=== PATIENT | male | born 1955 | race Caucasian/White ===

== ENCOUNTER → 2017-11-29 | Outpatient (CLI) | payer OTHER ==
[~2017-11-29] MED LIST: ASPIRIN325 PO; CARISOPRODOL 3350 MG PO; COLACE100 MG PO; ELIQUIS2.5 MG PO; FLEXERIL PO; HYDROCODONE-AP1 EAC6 PO; METAMUCIL PAC1 UDPKT PO; NOHOMEMEDICATIONS; OXYCODONE HCL 55 MG PO; PERCOCET PO; TRAMADOL 50 MG50 MG PO; TYLENOL325 MG PO; VICOPROFEN 2001 EACH PO; XARELTO10 MG PO
== END ==
LOC: M.MRI 06:46
DX: M51.24 Other intervertebral disc displacement, thoracic region (principal); M40.294 Other kyphosis, thoracic region; M47.894 Other spondylosis, thoracic region; M51.34 Other intervertebral disc degeneration, thoracic region

== ENCOUNTER 2017-12-26 23:01 | Emergency (ER) | payer OTHER ==
[~2017-12-26] VITALS: Ht 175.3 cm; Wt 76.2 kg
[~2017-12-26 23:01] MED LIST changes: -CARISOPRODOL 3350 MG PO; -ELIQUIS2.5 MG PO; -FLEXERIL PO
[2017-12-26] MEDS ORDERED: CARISOPRODOL 3350 MG PO (23:14)
[2017-12-26] MEDS ORDERED: FLEXERIL PO (23:24)
[2017-12-26] MEDS ORDERED: TRAMADOL 50 MG50 MG PO (23:24)
[2017-12-26 23:34] VITALS: BP 150/88
== END 2017-12-26 23:35 | disposition home or self-care (01) ==
LOC: M.ERS 23:01
DX: S29.019A Strain of muscle and tendon of unspecified wall of thorax, initial encounter (principal); M54.9 Dorsalgia, unspecified; Z96.653 Presence of artificial knee joint, bilateral; Z88.8 Allergy status to other drugs, medicaments and biological substances; Z88.1 Allergy status to other antibiotic agents; X58.XXXA Exposure to other specified factors, initial encounter; Y93.89 Activity, other specified; Y92.89 Other specified places as the place of occurrence of the external cause; Y99.8 Other external cause status

== ENCOUNTER → 2018-01-15 | Outpatient (CLI) | payer OTHER ==
[~2018-01-15] MED LIST changes: +CARISOPRODOL 3350 MG PO; +ELIQUIS2.5 MG PO; +FLEXERIL PO
== END ==
LOC: M.RAD 11:28
DX: M54.6 Pain in thoracic spine (principal); G89.29 Other chronic pain; R07.81 Pleurodynia; M25.78 Osteophyte, vertebrae; M41.86 Other forms of scoliosis, lumbar region

== ENCOUNTER → 2018-02-02 | Outpatient (CLI) | payer OTHER | LOC: M.NUC 01-30 08:51 | DX: M25.561 Pain in right knee (principal); M79.89 Other specified soft tissue disorders ==

== ENCOUNTER 2018-03-16 11:56 | Inpatient (IN) | payer OTHER, MEDICAID ==
[2018-03-06 13:43] LABS: ABSOLUTE EOSINOPHILS 0.1 thou/uL (0.0-0.7); ABSOLUTE LYMPHOCYTES 1.4 thou/uL (0.8-5.3); ABSOLUTE MONOCYTES 0.5 thou/uL (0.0-1.2); ABSOLUTE NEUTROPHILS 4.6 thou/uL (1.6-8.1); BASOPHILS 0.5 %; EOSINOPHILS 1.6 %; HEMATOCRIT 44.2 % (42.0-52.0); LYMPHOCYTES 21.7 %; MCH 30.7 pg (26.0-34.0); MCV 90.3 fL (80.0-100.0); MPV 7.1 fl. (7.2-11.1); NUCLEATED RBCS 0 /100WBC; PLATELET COUNT* 238 thou/uL (150-400); POLYS 69.2 %; RDW-CV 13.5 % (10.5-14.5); WBC 6.6 thou/uL (4.0-11.0)
[2018-03-06 13:51] LABS: APTT 26.5 Seconds (25.0-31.3); PROTIME 9.7 Seconds (9.20-11.50)
[2018-03-06 14:02] LABS: ALBUMIN 3.9 g/dL (3.4-5.0); CALCIUM 9.3 mg/dL (8.5-10.1); CREATININE 0.9 mg/dL (0.6-1.3); TOTAL BILIRUBIN 0.4 mg/dL (<0.1-1.0); TOTAL PROTEIN 6.7 g/dL (6.4-8.2)
[2018-03-06 14:48] LABS: ESR (SEDRATE) 1 mm/hr (0-20)
--- NOTE | 2018-03-06 16:30 | EKG ---
[place] [address] ELECTROCARDIOGRAM REPORT Name: BORIS FANG Verena Room: PRE IN 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
[~2018-03-16] VITALS: Ht 177.8 cm; Wt 73.5 kg
[~2018-03-16 11:56] MED LIST changes: -ELIQUIS2.5 MG PO
[2018-03-19 11:00] VITALS: BP 135/90
[2018-03-19 16:40] VITALS: BP 118/66
[2018-03-19 20:00] VITALS: BP 102/66
[2018-03-20 00:15] VITALS: BP 115/63
[2018-03-20 04:02] VITALS: BP 103/74
[2018-03-20 04:17] LABS: HEMATOCRIT 37.1 % (42.0-52.0); HEMOGLOBIN 12.6 gm/dL (14.0-18.0)
[2018-03-20 08:00] VITALS: BP 89/65
[2018-03-20 16:15] VITALS: BP 139/77
[2018-03-20 17:28] VITALS: BP 139/77
[2018-03-20 20:00] VITALS: BP 131/80
[2018-03-21 00:54] VITALS: BP 121/78
[2018-03-21 00:58] VITALS: BP 121/78
[2018-03-21 04:38] VITALS: BP 122/76
[2018-03-21 04:46] LABS: HEMATOCRIT 37.6 % (42.0-52.0); HEMOGLOBIN 12.9 gm/dL (14.0-18.0)
[2018-03-21 08:00] VITALS: BP 129/83
[2018-03-21] MEDS ORDERED: ELIQUIS2.5 MG PO (10:58)
[2018-03-21] MEDS ORDERED: OXYCODONE HCL 55 MG PO (10:58)
[2018-03-21] MEDS ORDERED: ASPIRIN325 PO (11:04)
[2018-03-21 16:16] VITALS: BP 124/81
--- NOTE | 2018-04-15 22:24 | OP ---
[address] [address] OPERATIVE REPORT Name: ANNALISABORIS Albarado Room: [address]#: [id number] Admission: 03/19/18 Attend Phys: Priyank Flanagan Discharge: 03/21/18 Date of : 51 Report #: [id number] THIS REPORT FOR: //name// CC: Frank Arguello DATE OF SERVICE: 03/19/2018 PREOPERATIVE DIAGNOSIS: Aseptic loosening, right total knee arthroplasty. POSTOPERATIVE DIAGNOSIS: Aseptic loosening, right total knee arthroplasty. PROCEDURE: Right revision total knee arthroplasty utilizing Biomet 360 total knee revision system. SURGEON: Frank Gayle DO CLIENT SERVICE SUPERVISOR: Nicko Melo DO ESTIMATED BLOOD LOSS: 300 mL TOURNIQUET TIME: Approximately 2 hours total. ANTIBIOTICS: Clindamycin 600 mg IV preoperatively. COMPLICATIONS: None. DRAINS: None. SPECIMEN REMOVED: None. ORTHOPEDIC IMPLANTS: Biomet revision total knee arthroplasty system. 1. Size 65 posterior stabilized femoral component with 16 x 80 mm offset femoral stem and two 5 mm posterior augments. 2. 71 mm tibial tray with 14 x 80 mm stem with a 5 mm medial augment and small fin. 3. 16 mm posterior stabilized polyethylene spacer. 4. Two bags of Palacos bone cement plain. CONDITION OF THE PATIENT: Stable to PACU. ANESTHESIA: General. INDICATIONS: The patient is a pleasant 62-year-old male seen in my clinic regarding right knee pain for quite some time. Unfortunately, he failed [facility] [address] [place] [address] OPERATIVE REPORT Name: BORIS FANG Room: [address] IN [facility]#: [id number] Admission: 03/19/18 Attend Phys: Priyank Flanagan Discharge: 03/21/18 Date of : 51 Report #: [id number] conservative treatment including anti-inflammatory medications, steroid injections, activity modification. He had a previous total knee arthroplasty done at an outside institution approximately 4-5 years ago. X-rays were consistent with loosening of the tibial component. He did have a bone scan as well as Synovasure was obtained and sent for fluid analysis. This was negative for alpha defensins and negative for obvious infection. Due to his exam findings and imaging as well as the laboratory findings, I recommended possible revision total knee arthroplasty with possible antibiotic spacer placement. I had a long discussion regarding treatment options. Risks discussed include, but not limited to infection, neurovascular injury, no improvement in symptoms continued or worsening pain, hardware failure, fracture, need for further surgery, DVT, PE and anesthesia complications. He did agree to this plan and wished to proceed with surgery. DESCRIPTION OF PROCEDURE: After consent was obtained, the patient was taken to the operative suite and placed in the supine position on the operating room table. He was given benefit of general anesthesia. A well-padded tourniquet was placed on the right upper thigh. Right leg was sterilely prepped and draped in usual fashion. Preop timeout was obtained to confirm the correct patient, procedure and operative site. Surgery began with elevation of the tourniquet to 300 mmHg. Standard anterior knee midline incision was made utilizing the previous incision. Sharp dissection was taken down to the level of the capsule. A new knife was used. Medial parapatellar arthrotomy was performed. He had a normal appearing joint effusion. The patella was gradually released and everted to expose the knee joint. He had no obvious signs of infection. The bone appeared to be healthy. It was very obvious the tibia was loose. He had a previous mobile bearing knee. At this time, the flexible osteotome was used to remove the femoral component without significant difficulty. There was literally no cement that was remaining on the implant. We removed the polyethylene spacer fairly easily and the tibia was quite easily removed and it was again quite loose. He had some mild medial bone loss. At this time, the osteotome was used to remove any cement. He had fairly well preserved bone on the femur. Synovectomy was performed. The tibia and femur were then reamed sequentially progressing up to a size 14 on the tibia and 16 on the femur. We then freshened up our tibia cut utilizing the tibial cutting jig. He had a fair amount of medial wear and we elected to make a 5 mm medial augment cut. This was done with an oscillating saw. We then trialled utilizing a 71 mm tibial baseplate with appropriate length stem and offset and medial augment. This was drilled, reamed and punched and the trial was constructed on the backtable and then impacted into place. This had a good fit and fill of the proximal tibia. Attention was then turned to the femur. Sequential reaming was performed up to a size 16 and the distal femoral cut was made off taking approximately 1 mm of distal femur cut. We did utilize 5 mm augments posteriorly. The femur measured size 65. The opening reamer was utilized as well as the 2.5 mm offset to appropriate position. [address] [address] OPERATIVE REPORT Name: BORIS FANG Room: [address] IN [facility]#: [id number] Admission: 03/19/18 Attend Phys: Toño JazminPriyank Martinez Discharge: 03/21/18 Date of : 51 Report #: [id number] Anterior and posterior condylar cuts were freshened up as well as chamfer cuts. The size 65 trial with 2 posterior augments was then impacted in place. A size 16 spacer was placed. Knee was taken into extension. At this time, I did obtain intraoperative x-ray noting good position of all hardware. The knee was taken through range of motion. He had a fairly balanced knee throughout with good flexion and extension gaps and good patellar tracking. The patella was everted. Some of scar tissue was removed with sharp dissection. The patella itself was in good shape and was not loose. Due to the condition of that polyethylene, I elected to leave this in place at this time. At this point, our final components were opened. The trial components were removed. Knee was thoroughly irrigated with pulsatile lavage and dried with a clean lap sponge. Final components were then constructed on the backtable. Cement was mixed and placed on the exposed bone. Final components were then impacted in place. A size 16 spacer was placed. The knee was taken through extension. Axial compression was applied. No cement hardened. Once the cement hardened, trial reduction was performed and a final 16 spacer was chosen. This was placed on a clean tibial tray and locked in place with locking bar. The knee was taken through a final range of motion. He had full flexion, extension with good stability throughout range of motion and good patellar tracking with equal flexion and extension gaps. At this time, the tourniquet was deflated at approximately 2 hours. Hemostasis was achieved with electrocautery and direct pressure. The knee was again thoroughly irrigated with pulsatile lavage. Ortho cocktail was injected. Capsular tissue was closed with #1 Vicryl in a kljouu-[id number]-obqye fashion. Knee was again thoroughly irrigated. Subcutaneous tissue closed with 2-0 Vicryl in inverted interrupted fashion followed by chevy on the skin. Sterile dressing was applied in the form of 4 x 4s, ABD pad, soft roll and Evan bandage. He did tolerate the procedure without complications. He was taken to recovery in stable condition. All needle and sponge counts correct x 2 at the end of the procedure. <ELECTRONICALLY SIGNED> By: Frank Gayle DO 04/15/18 2224 1758 1828Davipriyank Gayle DO /nt
== END 2018-03-21 17:50 | disposition home health service (06) | DRG 467 ==
LOC: M.PRE 11:56 → M.ORTHSURG 03-19 09:50 → M.TBA 03-19 09:50 → M.PRE 03-19 09:57 → M.ORTHSURG 03-19 16:44
PROVIDERS: Orthopaedic Surgery; ADMIT Internal Medicine
PROC: 0SPC0JZ Removal of Synthetic Substitute from Right Knee Joint, Open Approach (ICD-10-PCS; principal; 2018-03-19)
PROC: 0SRC0J9 Replacement of Right Knee Joint with Synthetic Substitute, Cemented, Open Approach (ICD-10-PCS; principal; 2018-03-19)
DX: T84.032A Mechanical loosening of internal right knee prosthetic joint, initial encounter (principal); D62 Acute posthemorrhagic anemia; Y92.89 Other specified places as the place of occurrence of the external cause; Z88.1 Allergy status to other antibiotic agents; Z88.8 Allergy status to other drugs, medicaments and biological substances; Z82.49 Family history of ischemic heart disease and other diseases of the circulatory system

== ENCOUNTER 2018-04-09 05:05 | Emergency (ER) | payer OTHER, MEDICAID ==
[~2018-04-09] VITALS: Ht 175.3 cm; Wt 74.8 kg
[~2018-04-09 05:05] MED LIST changes: +ELIQUIS2.5 MG PO
[2018-04-09 05:38] LABS: ABSOLUTE BASOPHILS 0.1 thou/uL (0.0-0.2); ABSOLUTE EOSINOPHILS 0.3 thou/uL (0.0-0.7); ABSOLUTE LYMPHOCYTES 1.6 thou/uL (0.8-5.3); ABSOLUTE MONOCYTES 0.4 thou/uL (0.0-1.2); ABSOLUTE NEUTROPHILS 4.4 thou/uL (1.6-8.1); BASOPHILS 1.4 %; EOSINOPHILS 4.1 %; HEMATOCRIT 38.1 % (42.0-52.0); HEMOGLOBIN 12.9 gm/dL (14.0-18.0); LYMPHOCYTES 24.1 %; MCH 30.7 pg (26.0-34.0); MCHC 33.9 g/dL (28.0-37.0); MCV 90.6 fL (80.0-100.0); MONOCYTES 6.4 %; MPV 6.7 fl. (7.2-11.1); NUCLEATED RBCS 0 /100WBC; PLATELET COUNT* 376 thou/uL (150-400); RBC 4.21 mil/uL (4.50-6.00); WBC 6.8 thou/uL (4.0-11.0)
[2018-04-09 05:55] LABS: CALCIUM 9.6 mg/dL (8.5-10.1); CREATININE 0.9 mg/dL (0.6-1.3); POTASSIUM 4.4 mmol/L (3.5-5.1)
[2018-04-09 06:00] LABS: ALBUMIN 3.6 g/dL (3.4-5.0); TOTAL BILIRUBIN 0.3 mg/dL (<0.1-1.0); TOTAL PROTEIN 6.8 g/dL (6.4-8.2)
[2018-04-09 07:17] LABS: ESR (SEDRATE) 5 mm/hr (0-20)
[2018-04-09 07:50] VITALS: BP 132/79
== END 2018-04-09 07:51 | disposition home or self-care (01) ==
LOC: M.ERS 05:05
PROVIDERS: Emergency Medicine
DX: M25.561 Pain in right knee (principal); Z88.1 Allergy status to other antibiotic agents; Z88.6 Allergy status to analgesic agent

== ENCOUNTER → 2018-08-09 | Outpatient (CLI) | payer OTHER, MEDICAID | LOC: M.MRI 16:12 | DX: M19.072 Primary osteoarthritis, left ankle and foot (principal); L03.116 Cellulitis of left lower limb; R60.0 Localized edema ==

== ENCOUNTER 2019-03-09 21:56 | Emergency (ER) | payer OTHER, MEDICAID ==
[~2019-03-09] VITALS: Ht 175.3 cm; Wt 78.0 kg
[2019-03-09] MEDS ORDERED: TRAMADOL 50 MG50 MG (22:05)
[2019-03-09] MEDS ORDERED: BACTRIM DS TAB1 EACH PO (22:56)
[2019-03-09 23:27] VITALS: BP 154/86
== END 2019-03-09 23:30 | disposition home or self-care (01) ==
LOC: M.ERS 21:56
DX: L03.116 Cellulitis of left lower limb (principal); Z88.1 Allergy status to other antibiotic agents; Z88.8 Allergy status to other drugs, medicaments and biological substances

== ENCOUNTER → 2019-03-19 | Outpatient (CLI) | payer OTHER, MEDICAID ==
[~2019-03-19] MED LIST changes: +BACTRIM DS TAB1 EACH PO; +TRAMADOL 50 MG50 MG
== END ==
LOC: M.WC 08:47
DX: L97.321 Non-pressure chronic ulcer of left ankle limited to breakdown of skin (principal); I87.2 Venous insufficiency (chronic) (peripheral); Z96.653 Presence of artificial knee joint, bilateral

== ENCOUNTER → 2019-03-25 | Outpatient (CLI) | payer OTHER, MEDICAID | LOC: M.WC 00:56 | DX: L97.321 Non-pressure chronic ulcer of left ankle limited to breakdown of skin (principal); I87.2 Venous insufficiency (chronic) (peripheral); Z96.653 Presence of artificial knee joint, bilateral ==

== ENCOUNTER → 2019-04-02 | Outpatient (CLI) | payer OTHER, MEDICAID | LOC: M.WC 01:53 | DX: L97.321 Non-pressure chronic ulcer of left ankle limited to breakdown of skin (principal); I87.2 Venous insufficiency (chronic) (peripheral); Z96.653 Presence of artificial knee joint, bilateral ==

== ENCOUNTER → 2019-04-09 | Outpatient (CLI) | payer OTHER, MEDICAID | LOC: M.WC 08:00 | DX: L97.321 Non-pressure chronic ulcer of left ankle limited to breakdown of skin (principal); I87.2 Venous insufficiency (chronic) (peripheral); Z96.653 Presence of artificial knee joint, bilateral ==

== ENCOUNTER → 2019-04-12 | Outpatient (CLI) | payer OTHER, MEDICAID | LOC: M.WC 05:02 | DX: L97.321 Non-pressure chronic ulcer of left ankle limited to breakdown of skin (principal); I87.2 Venous insufficiency (chronic) (peripheral); Z96.653 Presence of artificial knee joint, bilateral ==

== ENCOUNTER 2019-08-03 20:47 | Emergency (ER) | payer OTHER, MEDICAID ==
[~2019-08-03] VITALS: Ht 175.3 cm; Wt 79.4 kg
[2019-08-03 20:55] VITALS: BP 123/74
[2019-08-03] MEDS ORDERED: KEFLEX500 M1 PO (21:17)
== END 2019-08-03 21:35 | disposition home or self-care (01) ==
LOC: M.ERS 20:47
DX: G89.18 Other acute postprocedural pain (principal); M79.675 Pain in left toe(s); M79.674 Pain in right toe(s); Z88.1 Allergy status to other antibiotic agents; Z88.8 Allergy status to other drugs, medicaments and biological substances

== ENCOUNTER 2019-08-14 14:28 | Emergency (ER) | payer OTHER, MEDICAID ==
[~2019-08-14] VITALS: Ht 175.3 cm; Wt 79.4 kg
[~2019-08-14 14:28] MED LIST changes: +KEFLEX500 M1 PO
[2019-08-14 14:44] VITALS: BP 144/97
[2019-08-14] MEDS ORDERED: CLEOCIN HCL150 MG PO (14:49)
[2019-08-14 15:40] LABS: ABSOLUTE EOSINOPHILS 0.3 thou/uL (0.0-0.7); ABSOLUTE LYMPHOCYTES 1.7 thou/uL (0.8-5.3); ABSOLUTE MONOCYTES 0.4 thou/uL (0.0-1.2); ABSOLUTE NEUTROPHILS 3.3 thou/uL (1.6-8.1); BASOPHILS 0.6 %; EOSINOPHILS 5.5 %; HEMATOCRIT 39.3 % (42.0-52.0); HEMOGLOBIN 13.3 gm/dL (14.0-18.0); LYMPHOCYTES 29.8 %; MCH 30.4 pg (26.0-34.0); MCHC 33.9 g/dL (28.0-37.0); MCV 89.8 fL (80.0-100.0); MONOCYTES 7.1 %; MPV 7.2 fl. (7.2-11.1); NUCLEATED RBCS 0 /100WBC; PLATELET COUNT* 269 thou/uL (150-400); RBC 4.37 mil/uL (4.50-6.00); RDW-CV 12.9 % (10.5-14.5); WBC 5.7 thou/uL (4.0-11.0)
[2019-08-14 15:48] LABS: CALCIUM 8.6 mg/dL (8.5-10.1); CREATININE 0.9 mg/dL (0.6-1.3); POTASSIUM 4.5 mmol/L (3.5-5.1)
[2019-08-14 15:53] LABS: ALBUMIN 3.5 g/dL (3.4-5.0); TOTAL BILIRUBIN 0.3 mg/dL (<0.1-1.0); TOTAL PROTEIN 6.5 g/dL (6.4-8.2)
[2019-08-14 17:12] VITALS: BP 116/81
--- NOTE | 2019-08-16 07:44 | CON ---
[address] [address] CONSULTATION Name: ANNALISABORIS JOLLEY [facility]: [facility]#: [id number] Admission: 08/14/19 Attend Phys: Discharge: 08/14/19 Date of : 51 Report #: [id number] THIS REPORT FOR: //name// CC: Frank Shah DATE OF SERVICE: 08/14/2019 HISTORY OF PRESENT ILLNESS: The patient is a 63-year-old gentleman, who recently on 08/07/[address] Romero my partner had a surgery on both the right and left foot. ____ hammertoe correction surgery as well as some osteotomy. The patient has been back to the Emergency Room, came back on 08/03 just the day after surgery per the nurse practitioner and at that time apparently told them it has been three days since his surgery, although it was just one day and that they started him on some Keflex, which had to be changed to clindamycin secondary to him apparently being allergic to that. In any event, he then came back today in the examination instead of calling our office, which he never did call at any time to come in. He should have been in the ER with again some discomfort in the feet, right a little worse than the left. Apparently, Dr. Romero said he could heel walk on the right side and he has been doing that just to get some chores done, go get the mail, etc. Now continues with some increasing discomfort. He ran out of the oxycodone, my other partner, Dr. Gayle put him on some Vicoprofen, but now he says that is not working as good as well. In any event today, this gentleman is afebrile, the nurse practitioner is in the room with me today during the evaluation. PHYSICAL EXAMINATION: He is alert, not cooperative, appropriate affect and judgment. He does not appear to be in any gross writhing type of pain or whatsoever. We were having a relatively normal conversation. Attention to the lower extremities, his right lower extremity demonstrates some postoperative edema to the foot. His compartments are totally soft on the plantar side. On my touching the foot, his dorsal aspect demonstrates just some mild erythema only some mild resolving ecchymosis as I would expect, the sutures are all maintained in appropriate position. There is no drainage anywhere on the foot, out of any incision area on the right or the left side. His left foot on those incisions does not demonstrate any gross purulence anywhere as well. He does not demonstrate any major erythema at all to the left side. The patient does demonstrate to show warm and dry skin to both lower extremities, otherwise. The patient's overall clinical impression is status post 08/02/2019 right and left foot surgeries with some pain. PLAN: I told this gentleman, he is on clindamycin 300 mg q.i.d. He needs to continue to use all the ones that he has and finish those and we will see him on Monday, Dr. Romero is in the office. I will call Dr. Romero personally and talk to her and describe what the foot looks like. In any event today, I do not [address] [place] [address] CONSULTATION Name: BORIS FANG Room: [facility] TAM Reynaga#: [id number] Admission: 08/14/19 Attend Phys: Discharge: 08/14/19 Date of : 51 Report #: [id number] think this warrants an admission yet because we are going to finish the antibiotics, put him back on some oxycodone and see how that does as well as telling him to really keep these legs elevated and I showed him exactly what that means, how high they need to be elevated. Very limited walking as well will help decrease his edema. If his pain worsens by any means we will be happy to see him back sooner. He can get back to the ER if needed, but definitely we would get a call to our office hopefully and address it that way. He did not have any further questions or concerns. It is my pleasure seeing and taking care of the patient today. <ELECTRONICALLY SIGNED> By: Atif Hart DO 08/16/19 0744 1609 1738Atif Hart DO /nt
== END 2019-08-14 17:14 | disposition home or self-care (01) ==
LOC: M.ERS 14:28 → M.TBA-ER 15:32 → M.ERS 15:32
PROVIDERS: Physician Assistant
DX: G89.18 Other acute postprocedural pain (principal); M79.671 Pain in right foot; Z96.653 Presence of artificial knee joint, bilateral; Z98.890 Other specified postprocedural states; Z88.1 Allergy status to other antibiotic agents; Z88.8 Allergy status to other drugs, medicaments and biological substances

== ENCOUNTER 2019-11-18 19:16 | Emergency (ER) | payer OTHER, MEDICAID ==
[~2019-11-18] VITALS: Ht 175.3 cm; Wt 80.7 kg
[~2019-11-18 19:16] MED LIST changes: +CLEOCIN HCL150 MG PO
[2019-11-18] MEDS ORDERED: VICODIN (19:28)
[2019-11-18] MEDS ORDERED: IBUPROFEN (19:28)
[2019-11-18 19:51] LABS: ABSOLUTE EOSINOPHILS 0.1 thou/uL (0.0-0.7); ABSOLUTE LYMPHOCYTES 0.8 thou/uL (0.8-5.3); ABSOLUTE MONOCYTES 0.4 thou/uL (0.0-1.2); ABSOLUTE NEUTROPHILS 5.2 thou/uL (1.6-8.1); BASOPHILS 0.4 %; EOSINOPHILS 1.3 %; HEMATOCRIT 42.2 % (42.0-52.0); HEMOGLOBIN 14.6 gm/dL (14.0-18.0); MCH 30.9 pg (26.0-34.0); MCHC 34.4 g/dL (28.0-37.0); MCV 89.8 fL (80.0-100.0); MONOCYTES 5.6 %; MPV 7.6 fl. (7.2-11.1); NUCLEATED RBCS 0 /100WBC; PLATELET COUNT* 214 thou/uL (150-400); POLYS 80.7 %; RDW-CV 13.6 % (10.5-14.5); WBC 6.5 thou/uL (4.0-11.0)
[2019-11-18 19:55] LABS: CALCIUM 8.5 mg/dL (8.5-10.1); POTASSIUM 4.2 mmol/L (3.5-5.1)
[2019-11-18 19:56] LABS: INFLUENZA A ANTIGEN Negative (Negative)
[2019-11-18 20:00] LABS: ALBUMIN 3.8 g/dL (3.4-5.0); TOTAL BILIRUBIN 0.2 mg/dL (<0.1-1.0)
[2019-11-18] MEDS ORDERED: PROMETH-CODEIN 65 ML PO (20:37)
[2019-11-18] MEDS ORDERED: TAMIFLU75 MG PO (20:37)
[2019-11-18 21:00] VITALS: BP 126/83
[2019-11-18] MEDS ORDERED: PROAIR HFA8.5 GM INH ×2 (21:06→21:07)
--- NOTE | 2019-11-19 13:48 | EKG ---
[place] [address] ELECTROCARDIOGRAM REPORT Name: BORIS FANG [id number] Admission: 11/18/19 Attend Phys: Discharge: 11/18/19 Date of : 51 Report #: [id number] THIS REPORT FOR: //name// 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
== END 2019-11-18 21:01 | disposition home or self-care (01) ==
LOC: M.ERS 19:16
PROVIDERS: Emergency Medicine
DX: J10.1 Influenza due to other identified influenza virus with other respiratory manifestations (principal); Z96.653 Presence of artificial knee joint, bilateral; Z98.890 Other specified postprocedural states; Z88.1 Allergy status to other antibiotic agents; Z88.8 Allergy status to other drugs, medicaments and biological substances

== ENCOUNTER 2019-12-28 17:20 | Emergency (ER) | payer OTHER, MEDICAID ==
[~2019-12-28] VITALS: Ht 175.3 cm; Wt 78.0 kg
[~2019-12-28 17:20] MED LIST changes: +IBUPROFEN; +PROAIR HFA8.5 GM INH; +PROMETH-CODEIN 65 ML PO; +TAMIFLU75 MG PO; +VICODIN
[2019-12-28] MEDS ORDERED: CLINDAMYCIN HC300 MG PO (18:06)
[2019-12-28] MEDS ORDERED: HYDROCODONE-IB1 EACH PO (18:06)
[2019-12-28 18:22] VITALS: BP 160/91
[2019-12-28] MEDS ORDERED: HYDROCODONE-IB1 EAC3 PO (18:31)
== END 2019-12-28 18:22 | disposition home or self-care (01) ==
LOC: M.ERS 17:20
DX: L08.9 Local infection of the skin and subcutaneous tissue, unspecified (principal); Z96.653 Presence of artificial knee joint, bilateral; Z98.890 Other specified postprocedural states; Z88.1 Allergy status to other antibiotic agents; Z88.8 Allergy status to other drugs, medicaments and biological substances

== ENCOUNTER 2020-02-09 08:00 | Emergency (ER) | payer OTHER, MEDICAID ==
[~2020-02-09] VITALS: Ht 175.3 cm; Wt 78.0 kg
[~2020-02-09 08:00] MED LIST changes: +CLINDAMYCIN HC300 MG PO; +HYDROCODONE-IB1 EAC3 PO; +HYDROCODONE-IB1 EACH PO
[2020-02-09 08:56] LABS: CALCIUM 8.7 mg/dL (8.5-10.1); POTASSIUM 3.6 mmol/L (3.5-5.1)
[2020-02-09 08:59] LABS: URIC ACID* 5.4 mg/dL (2.6-7.2)
[2020-02-09] MEDS ORDERED: CLEOCIN HCL300 MG PO (09:22)
[2020-02-09] MEDS ORDERED: NORCO 5-325 TA1 EAC1 PO (09:22)
[2020-02-09 09:31] VITALS: BP 134/99
== END 2020-02-09 09:32 | disposition home or self-care (01) ==
LOC: M.ERS 08:00
PROVIDERS: Emergency Medicine Emergency Medical Services
DX: L03.031 Cellulitis of right toe (principal); Z88.1 Allergy status to other antibiotic agents; Z88.8 Allergy status to other drugs, medicaments and biological substances

== ENCOUNTER → 2020-03-03 | Outpatient (CLI) | payer OTHER, MEDICAID ==
[~2020-03-03] MED LIST changes: +CLEOCIN HCL300 MG PO; +NORCO 5-325 TA1 EAC1 PO
== END ==
LOC: M.MRI 07:52
DX: S43.432A Superior glenoid labrum lesion of left shoulder, initial encounter (principal); S46.912A Strain of unspecified muscle, fascia and tendon at shoulder and upper arm level, left arm, initial encounter; M19.012 Primary osteoarthritis, left shoulder; M62.58 Muscle wasting and atrophy, not elsewhere classified, other site; X58.XXXA Exposure to other specified factors, initial encounter; Y93.89 Activity, other specified; Y92.89 Other specified places as the place of occurrence of the external cause; Y99.8 Other external cause status; Y93.9 Activity, unspecified

== ENCOUNTER → 2020-07-21 | Outpatient (CLI) | payer OTHER, MEDICAID ==
[2020-07-21 12:02] LABS: ABSOLUTE EOSINOPHILS 0.1 thou/uL (0.0-0.7); ABSOLUTE LYMPHOCYTES 1.3 thou/uL (0.8-5.3); ABSOLUTE MONOCYTES 0.3 thou/uL (0.0-1.2); ABSOLUTE NEUTROPHILS 3.6 thou/uL (1.6-8.1); BASOPHILS 0.6 %; EOSINOPHILS 1.8 %; HEMATOCRIT 42.5 % (42.0-52.0); HEMOGLOBIN 14.8 gm/dL (14.0-18.0); LYMPHOCYTES 24.5 %; MCHC 34.9 g/dL (28.0-37.0); MCV 88.9 fL (80.0-100.0); MONOCYTES 6.2 %; MPV 6.9 fl. (7.2-11.1); NUCLEATED RBCS 0 /100WBC; PLATELET COUNT* 253 thou/uL (150-400); POLYS 66.9 %; RBC 4.78 mil/uL (4.50-6.00); RDW-CV 12.8 % (10.5-14.5); WBC 5.4 thou/uL (4.0-11.0)
[2020-07-21 12:10] LABS: APTT 25.7 Seconds (25.0-31.3); PROTIME 10.4 Seconds (9.20-11.50)
[2020-07-21 12:13] LABS: CALCIUM 8.9 mg/dL (8.5-10.1); POTASSIUM 4.9 mmol/L (3.5-5.1); TOTAL BILIRUBIN 0.5 mg/dL (<0.1-1.0); TOTAL PROTEIN 6.9 g/dL (6.4-8.2)
[2020-07-21 13:01] LABS: ESR (SEDRATE) 3 mm/hr (0-20)
--- NOTE | 2020-07-21 14:35 | EKG ---
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
== END ==
LOC: M.LAB 11:17
PROVIDERS: ATTEND Orthopaedic Surgery
DX: Z01.812 Encounter for preprocedural laboratory examination (principal); Z20.828 Contact with and (suspected) exposure to other viral communicable diseases; I49.9 Cardiac arrhythmia, unspecified

== ENCOUNTER 2020-07-27 09:55 | Observation (INO) | payer OTHER, MEDICAID ==
[~2020-07-27] VITALS: Ht 175.3 cm; Wt 80.7 kg
[2020-07-27] MEDS ORDERED: PERCOCET 10-321 EAC1 PO (16:07)
--- NOTE | 2020-07-28 15:54 | NUR ---
ORDERS RECEIVED, BUT PATIENT HAS DISCHARGED FROM [facility] PRIOR TO P.T. EVAULATION. CANDY CHARLES,MPT
--- NOTE | 2020-08-03 11:46 | OP ---
[address] [address] OPERATIVE REPORT Name: BORIS FANG Room: [address] Fabricio Reynaga#: [id number] Admission: 07/27/20 Attend Phys: Priyank Flanagan Discharge: 07/27/20 Date of : 51 Report #: [id number] THIS REPORT FOR: //name// cc: Frank Isaacs MD, David L. MD ~ CC: Frank Isaacs DICTATED BY: Jose Armando Barrera DO DATE OF SERVICE: 07/27/2020 PREOPERATIVE DIAGNOSIS: Left shoulder rotator cuff arthropathy. POSTOPERATIVE DIAGNOSIS: Left shoulder rotator cuff arthropathy. PROCEDURE PERFORMED: Left reverse total shoulder arthroplasty utilizing the Tornier reverse total shoulder system with the following components: 1. A size 3 humeral stem. 2. A 42 mm +6 mm reverse humeral insert. 3. A 29 mm threaded post-baseplate with a Tornier 5 mm post. 4. A standard +0 mm reverse tray. 5. A 29 eccentric glenosphere. 6. A 29 and 32 mm locking screw in the glenoid baseplate. SURGEON: Frank Gayle DO BATTERY WRECKER OPERATOR: Jose Armando Barrera DO and Elder Berry DO ANESTHESIA: General. ESTIMATED BLOOD LOSS: 100 mL. SPECIMENS: None. COMPLICATIONS: None. ANTIBIOTICS: 600 mg clindamycin IV preoperatively. INDICATIONS FOR PROCEDURE: The patient is a pleasant 64-year-old male who has been seen and examined in the outpatient orthopedic clinic with regards to the left shoulder. Had previous rotator cuff tear treated with rotator cuff repair. He continued to have some pain to the shoulder. X-rays showed some degenerative changes to the glenohumeral joint as well as a high riding humeral head. He previously underwent a right reverse total shoulder arthroplasty and has done extremely well with this. Treatment [place] [address] OPERATIVE REPORT Name: BORIS AFNG [address] [id number] Admission: 07/27/20 Attend Phys: Priyank Flanagan Discharge: 07/27/20 Date of : 51 Report #: [id number] discussed in detail. Risks, benefits, alternatives and complications of reverse total shoulder were discussed. The patient wished to proceed. DESCRIPTION OF PROCEDURE: The patient was seen and examined in the preoperative holding area. The correct operative extremity was marked. Written consent was obtained. The patient was then transferred to the operating room and placed supine on the operating table. He was given the benefit of general anesthesia. He was then placed into the beach chair position. Left upper extremity was prepped and draped in the usual sterile fashion. Timeout was performed to verify the correct patient, procedure and operative extremity and all were in agreement. Next, procedure began with a standard deltopectoral incision. Dissection was carried down through the fascia and subcutaneous layer, and the cephalic vein was identified. This was dissected bluntly and retracted laterally with the deltoid. Appropriate retractors were placed. The clavipectoral fascia was then incised and the superior border of the pectoralis major tendon was released. Next, the biceps tendon was identified and the bicipital groove was opened up and the rotator interval was released to the level of the glenoid. The subscapularis tendon was then released subperiosteally around the medial aspect of the neck. The humerus was then dislocated. Next, all osteophytes were removed with a rongeur. The intramedullary cut guide was then inserted into the humeral head. The humeral cut was performed in a standard fashion. The humerus was then broached up to a size 3. The size 3 trial was then left in place and attention was turned to the glenoid. The anterior capsule was then excised. The remainder of the labrum was excised. Appropriate retractors were placed giving excellent visualization of the glenoid. Next, the guide pin was inserted centered in the glenoid. This was drilled with the cannulated drill bit. The glenoid was then reamed sequentially over the guide pin. Next, the center hole was measured to a depth of 25. Next, a 25 mm in length glenoid baseplate was then inserted into position. This was noted to have excellent purchase on the bone. Two locking screws were then inserted into the glenoid baseplate fracture stabilization. The eccentric glenosphere was then inserted into appropriate position. Attention was then turned back to the humerus. A trial humeral tray and insert were then inserted and the shoulder was reduced. The shoulder was noted to have full range of motion and excellent stability. The shoulder was then dislocated and the trial components were removed. The final humerus was then impacted into position. The final humeral polyethylene tray was then inserted and impacted into position. The shoulder was once again reduced, taken through full range of motion. There was noted to have full range of motion with excellent stability. The wound was then thoroughly irrigated with normal saline. The deltopectoral interval was then closed with a #1 Vicryl in a running fashion. A 2-0 Vicryl was used subcutaneously followed by running 3-0 Stratafix on the skin. The skin glue was applied. Sterile dressing was applied. The patient was placed in a sling. He was then awakened from anesthesia and transferred to the PACU in [facility] [address] [place] [address] OPERATIVE REPORT Name: BORIS FANG Room: [address] Fabricio Reynaga#: [id number] Admission: 07/27/20 Attend Phys: Priyank Flanagan Discharge: 07/27/20 Date of : 51 Report #: [id number] stable condition. The patient tolerated the procedure well. There were no complications. <ELECTRONICALLY SIGNED> By: Frank Gayle DO 08/03/20 1146 1404 [id number] Gayle DO /nt
== END 2020-07-27 16:23 | disposition home or self-care (01) ==
LOC: M.SUR → M.TBA 13:47
PROVIDERS: ADMIT Internal Medicine; ATTEND Internal Medicine
DX: M19.012 Primary osteoarthritis, left shoulder (principal); Z98.890 Other specified postprocedural states; Z79.899 Other long term (current) drug therapy; Z20.828 Contact with and (suspected) exposure to other viral communicable diseases

== ENCOUNTER 2021-07-01 22:52 | Emergency (ER) | payer OTHER, MEDICAID ==
[~2021-07-01] VITALS: Ht 170.2 cm; Wt 95.3 kg
[~2021-07-01 22:52] MED LIST changes: +PERCOCET 10-321 EAC1 PO
[2021-07-01 23:53] LABS: ABSOLUTE EOSINOPHILS 0.2 thou/uL (0.0-0.7); ABSOLUTE LYMPHOCYTES 1.5 thou/uL (0.8-5.3); ABSOLUTE MONOCYTES 0.5 thou/uL (0.0-1.2); ABSOLUTE NEUTROPHILS 3.8 thou/uL (1.6-8.1); BASOPHILS 0.5 %; EOSINOPHILS 3.8 %; HEMOGLOBIN 13.4 gm/dL (14.0-18.0); MCH 30.5 pg (26.0-34.0); MCHC 33.6 g/dL (28.0-37.0); MONOCYTES 8.1 %; MPV 6.9 fl. (7.2-11.1); NUCLEATED RBCS 0 /100WBC; PLATELET COUNT* 244 thou/uL (150-400); POLYS 63.6 %; RDW-CV 13.2 % (10.5-14.5); WBC 6.1 thou/uL (4.0-11.0)
[2021-07-02 00:09] LABS: CALCIUM 8.8 mg/dL (8.5-10.1); POTASSIUM 3.9 mmol/L (3.5-5.1)
[2021-07-02 00:14] LABS: ALBUMIN 3.9 g/dL (3.4-5.0); TOTAL BILIRUBIN 0.2 mg/dL (<0.1-1.0); TOTAL PROTEIN 6.8 g/dL (6.4-8.2)
[2021-07-02 01:05] LABS: ESR (SEDRATE) 3 mm/hr (0-20)
[2021-07-02] MEDS ORDERED: DOXYCYCLINE 10100 MG PO (01:59)
[2021-07-02 05:15] VITALS: BP 141/80
== END 2021-07-02 05:15 | disposition home or self-care (01) ==
LOC: M.ERS 22:52
PROVIDERS: Emergency Medicine
DX: L97.929 Non-pressure chronic ulcer of unspecified part of left lower leg with unspecified severity (principal); L03.116 Cellulitis of left lower limb; Z96.653 Presence of artificial knee joint, bilateral; Z98.890 Other specified postprocedural states; Z79.899 Other long term (current) drug therapy; Z88.1 Allergy status to other antibiotic agents; Z88.8 Allergy status to other drugs, medicaments and biological substances

== ENCOUNTER 2021-07-05 15:16 | Emergency (ER) | payer OTHER, MEDICAID ==
[~2021-07-05] VITALS: Ht 175.3 cm; Wt 85.3 kg
[~2021-07-05 15:16] MED LIST changes: +DOXYCYCLINE 10100 MG PO
[2021-07-05] MEDS ORDERED: BACTRIM DS TAB1 EACH PO (16:40)
[2021-07-05] MEDS ORDERED: PERCOCET PO (16:40)
[2021-07-05] MEDS ORDERED: CIPROFLOXACIN500 M1 PO (16:40)
[2021-07-05 16:58] VITALS: BP 150/95
== END 2021-07-05 16:59 | disposition home or self-care (01) ==
LOC: M.ERS 15:16
DX: L97.329 Non-pressure chronic ulcer of left ankle with unspecified severity (principal); Z96.653 Presence of artificial knee joint, bilateral; Z98.890 Other specified postprocedural states; Z79.2 Long term (current) use of antibiotics; Z79.899 Other long term (current) drug therapy; Z88.1 Allergy status to other antibiotic agents; Z88.8 Allergy status to other drugs, medicaments and biological substances

== ENCOUNTER → 2021-07-12 | Outpatient (CLI) | payer OTHER, MEDICAID ==
[~2021-07-12] MED LIST changes: +CIPROFLOXACIN500 M1 PO
== END ==
LOC: M.WC 07:51
PROVIDERS: ATTEND Surgery
DX: I87.032 Postthrombotic syndrome with ulcer and inflammation of left lower extremity (principal); L97.322 Non-pressure chronic ulcer of left ankle with fat layer exposed; L03.116 Cellulitis of left lower limb; L50.0 Allergic urticaria; Z96.653 Presence of artificial knee joint, bilateral

== ENCOUNTER → 2021-07-20 | Outpatient (CLI) | payer OTHER, MEDICAID | LOC: M.WC 08:31 | PROVIDERS: ATTEND Family Medicine | DX: I87.032 Postthrombotic syndrome with ulcer and inflammation of left lower extremity (principal); L97.322 Non-pressure chronic ulcer of left ankle with fat layer exposed; L03.116 Cellulitis of left lower limb; L50.0 Allergic urticaria; Z96.653 Presence of artificial knee joint, bilateral ==

== ENCOUNTER → 2021-07-23 | Outpatient (CLI) | payer OTHER, MEDICAID | LOC: M.WC 08:41 | PROVIDERS: ATTEND Emergency Medicine Undersea and Hyperbaric Medicine | DX: I87.032 Postthrombotic syndrome with ulcer and inflammation of left lower extremity (principal); L97.322 Non-pressure chronic ulcer of left ankle with fat layer exposed; L03.116 Cellulitis of left lower limb; L50.0 Allergic urticaria; Z96.653 Presence of artificial knee joint, bilateral ==

== ENCOUNTER → 2021-07-27 | Outpatient (CLI) | payer OTHER, MEDICAID | LOC: M.WC 08:20 | PROVIDERS: ATTEND Emergency Medicine Undersea and Hyperbaric Medicine | DX: I87.032 Postthrombotic syndrome with ulcer and inflammation of left lower extremity (principal); L97.322 Non-pressure chronic ulcer of left ankle with fat layer exposed; L03.116 Cellulitis of left lower limb; L50.0 Allergic urticaria; Z96.653 Presence of artificial knee joint, bilateral ==

== ENCOUNTER → 2021-08-03 | Outpatient (CLI) | payer OTHER, MEDICAID | LOC: M.WC 08:26 | PROVIDERS: ATTEND Emergency Medicine Undersea and Hyperbaric Medicine | DX: I87.032 Postthrombotic syndrome with ulcer and inflammation of left lower extremity (principal); L97.322 Non-pressure chronic ulcer of left ankle with fat layer exposed; L03.116 Cellulitis of left lower limb; L50.0 Allergic urticaria; Z96.653 Presence of artificial knee joint, bilateral ==

== ENCOUNTER → 2021-08-06 | Outpatient (CLI) | payer OTHER, MEDICAID | LOC: M.WC 07:32 | PROVIDERS: ATTEND Emergency Medicine Undersea and Hyperbaric Medicine | DX: I87.032 Postthrombotic syndrome with ulcer and inflammation of left lower extremity (principal); L97.322 Non-pressure chronic ulcer of left ankle with fat layer exposed; L03.116 Cellulitis of left lower limb; L50.0 Allergic urticaria; Z96.653 Presence of artificial knee joint, bilateral ==

== ENCOUNTER → 2021-08-09 | Outpatient (CLI) | payer OTHER, MEDICAID | LOC: M.WC 07:44 | PROVIDERS: ATTEND Surgery | DX: I87.032 Postthrombotic syndrome with ulcer and inflammation of left lower extremity (principal); L97.322 Non-pressure chronic ulcer of left ankle with fat layer exposed; L03.116 Cellulitis of left lower limb; L50.0 Allergic urticaria; Z96.653 Presence of artificial knee joint, bilateral ==

== ENCOUNTER 2021-08-13 18:58 | Emergency (ER) | payer OTHER, MEDICAID ==
[~2021-08-13] VITALS: Ht 172.7 cm; Wt 83.9 kg
[~2021-08-13 18:58] MED LIST changes: -CIPROFLOXIN HC2.5 M1 OPHTHALMIC; -HYDROCODONE; -POLYMYXIN B/TMP10 ML OPHTHALMIC
[2021-08-13] MEDS ORDERED: HYDROCODONE (19:12)
[2021-08-13] MEDS ORDERED: CIPROFLOXIN HC2.5 M1 OPHTHALMIC (19:59)
[2021-08-13 20:05] VITALS: BP 129/84
[2021-08-14] MEDS ORDERED: POLYMYXIN B/TMP10 ML OPHTHALMIC (15:30)
== END 2021-08-13 20:05 | disposition home or self-care (01) ==
LOC: M.ERS 18:58
DX: S05.01XA Injury of conjunctiva and corneal abrasion without foreign body, right eye, initial encounter (principal); H11.31 Conjunctival hemorrhage, right eye; Z98.890 Other specified postprocedural states; Z96.653 Presence of artificial knee joint, bilateral; Z79.2 Long term (current) use of antibiotics; Z79.899 Other long term (current) drug therapy; Z88.1 Allergy status to other antibiotic agents; Z88.8 Allergy status to other drugs, medicaments and biological substances; X58.XXXA Exposure to other specified factors, initial encounter; Y93.89 Activity, other specified; Y92.89 Other specified places as the place of occurrence of the external cause; Y99.8 Other external cause status

== ENCOUNTER → 2021-08-13 | Outpatient (CLI) | payer OTHER, MEDICAID ==
[~2021-08-13] MED LIST changes: +CIPROFLOXIN HC2.5 M1 OPHTHALMIC; +HYDROCODONE; +POLYMYXIN B/TMP10 ML OPHTHALMIC
== END ==
LOC: M.WC 07:35
PROVIDERS: ATTEND Surgery
DX: I87.032 Postthrombotic syndrome with ulcer and inflammation of left lower extremity (principal); L97.322 Non-pressure chronic ulcer of left ankle with fat layer exposed; L03.116 Cellulitis of left lower limb; L50.0 Allergic urticaria; Z96.653 Presence of artificial knee joint, bilateral

== ENCOUNTER → 2021-08-16 | Outpatient (CLI) | payer OTHER, MEDICAID ==
[~2021-08-16] MED LIST changes: +CIPROFLOXIN HC2.5 M1 OPHTHALMIC; +HYDROCODONE; +POLYMYXIN B/TMP10 ML OPHTHALMIC
== END ==
LOC: M.WC 07:39
PROVIDERS: ATTEND Surgery
DX: I87.032 Postthrombotic syndrome with ulcer and inflammation of left lower extremity (principal); L97.322 Non-pressure chronic ulcer of left ankle with fat layer exposed; L03.116 Cellulitis of left lower limb; L50.0 Allergic urticaria; Z96.653 Presence of artificial knee joint, bilateral

== ENCOUNTER → 2021-08-23 | Outpatient (CLI) | payer OTHER, MEDICAID | LOC: M.WC 07:44 | PROVIDERS: ATTEND Surgery | DX: I87.032 Postthrombotic syndrome with ulcer and inflammation of left lower extremity (principal); L97.322 Non-pressure chronic ulcer of left ankle with fat layer exposed; L03.116 Cellulitis of left lower limb; L50.0 Allergic urticaria; Z96.653 Presence of artificial knee joint, bilateral ==

== ENCOUNTER → 2021-08-27 | Outpatient (CLI) | payer OTHER, MEDICAID | LOC: M.WC 08:00 | PROVIDERS: ATTEND Surgery | DX: I87.032 Postthrombotic syndrome with ulcer and inflammation of left lower extremity (principal); L97.322 Non-pressure chronic ulcer of left ankle with fat layer exposed; L03.116 Cellulitis of left lower limb; I87.8 Other specified disorders of veins; L50.0 Allergic urticaria; Z96.653 Presence of artificial knee joint, bilateral ==

== ENCOUNTER → 2021-08-30 | Outpatient (CLI) | payer OTHER, MEDICAID | LOC: M.WC 07:32 | PROVIDERS: ATTEND Surgery | DX: I87.032 Postthrombotic syndrome with ulcer and inflammation of left lower extremity (principal); L97.322 Non-pressure chronic ulcer of left ankle with fat layer exposed; L03.116 Cellulitis of left lower limb; L50.0 Allergic urticaria; Z96.653 Presence of artificial knee joint, bilateral ==

== ENCOUNTER → 2021-09-03 | Outpatient (CLI) | payer OTHER, MEDICAID | LOC: M.WC 07:36 | PROVIDERS: ATTEND Surgery | DX: I87.032 Postthrombotic syndrome with ulcer and inflammation of left lower extremity (principal); L97.322 Non-pressure chronic ulcer of left ankle with fat layer exposed; L03.116 Cellulitis of left lower limb; L50.0 Allergic urticaria; Z96.653 Presence of artificial knee joint, bilateral ==

== ENCOUNTER → 2021-09-06 | Outpatient (CLI) | payer OTHER, MEDICAID | LOC: M.WC 07:41 | PROVIDERS: ATTEND Internal Medicine | DX: I87.032 Postthrombotic syndrome with ulcer and inflammation of left lower extremity (principal); L97.322 Non-pressure chronic ulcer of left ankle with fat layer exposed; L03.116 Cellulitis of left lower limb; L50.0 Allergic urticaria; Z96.653 Presence of artificial knee joint, bilateral ==

== ENCOUNTER → 2021-09-09 | Outpatient (CLI) | payer OTHER, MEDICAID | LOC: M.WC 08:44 | PROVIDERS: ATTEND Family Medicine | DX: I87.032 Postthrombotic syndrome with ulcer and inflammation of left lower extremity (principal); L97.322 Non-pressure chronic ulcer of left ankle with fat layer exposed; L03.116 Cellulitis of left lower limb; L50.0 Allergic urticaria; Z96.653 Presence of artificial knee joint, bilateral ==

== ENCOUNTER → 2021-09-13 | Outpatient (CLI) | payer OTHER, MEDICAID | LOC: M.WC 07:31 | PROVIDERS: ATTEND Surgery | DX: I87.032 Postthrombotic syndrome with ulcer and inflammation of left lower extremity (principal); L97.322 Non-pressure chronic ulcer of left ankle with fat layer exposed; L03.116 Cellulitis of left lower limb; L50.0 Allergic urticaria; Z96.653 Presence of artificial knee joint, bilateral ==

== ENCOUNTER → 2021-09-21 | Outpatient (CLI) | payer OTHER, MEDICAID | LOC: M.WC 08:00 | PROVIDERS: ATTEND Emergency Medicine Undersea and Hyperbaric Medicine | DX: I87.032 Postthrombotic syndrome with ulcer and inflammation of left lower extremity (principal); L97.322 Non-pressure chronic ulcer of left ankle with fat layer exposed; L03.116 Cellulitis of left lower limb; L50.0 Allergic urticaria; Z96.653 Presence of artificial knee joint, bilateral; Z79.899 Other long term (current) drug therapy ==

== ENCOUNTER 2021-09-23 22:58 | Emergency (ER) | payer OTHER, MEDICAID ==
[~2021-09-23] VITALS: Ht 172.7 cm; Wt 90.2 kg
[2021-09-24 02:15] VITALS: BP 155/89
== END 2021-09-24 02:15 | disposition home or self-care (01) ==
LOC: M.ERS 22:58
DX: F11.20 Opioid dependence, uncomplicated (principal); G89.29 Other chronic pain; M25.562 Pain in left knee; M25.561 Pain in right knee; Z88.8 Allergy status to other drugs, medicaments and biological substances

== ENCOUNTER → 2021-10-04 | Outpatient (CLI) | payer OTHER, MEDICAID | LOC: M.WC 07:44 | PROVIDERS: ATTEND Surgery | DX: I87.032 Postthrombotic syndrome with ulcer and inflammation of left lower extremity (principal); L97.322 Non-pressure chronic ulcer of left ankle with fat layer exposed; L03.116 Cellulitis of left lower limb; L50.0 Allergic urticaria; Z96.653 Presence of artificial knee joint, bilateral ==

== ENCOUNTER → 2021-10-11 | Outpatient (CLI) | payer OTHER, MEDICAID | LOC: M.WC 07:44 | PROVIDERS: ATTEND Surgery | DX: I87.032 Postthrombotic syndrome with ulcer and inflammation of left lower extremity (principal); L97.322 Non-pressure chronic ulcer of left ankle with fat layer exposed; L03.116 Cellulitis of left lower limb; L50.0 Allergic urticaria; Z96.653 Presence of artificial knee joint, bilateral; Z79.899 Other long term (current) drug therapy ==

== ENCOUNTER → 2021-10-18 | Outpatient (CLI) | payer OTHER, MEDICAID | LOC: M.WC 07:49 | PROVIDERS: ATTEND Surgery | DX: I87.032 Postthrombotic syndrome with ulcer and inflammation of left lower extremity (principal); L97.322 Non-pressure chronic ulcer of left ankle with fat layer exposed; L03.116 Cellulitis of left lower limb; L50.0 Allergic urticaria; Z96.653 Presence of artificial knee joint, bilateral ==

== ENCOUNTER → 2021-10-25 | Outpatient (CLI) | payer OTHER, MEDICAID | LOC: M.WC 07:46 | PROVIDERS: ATTEND Surgery | DX: I87.032 Postthrombotic syndrome with ulcer and inflammation of left lower extremity (principal); L97.322 Non-pressure chronic ulcer of left ankle with fat layer exposed; L03.116 Cellulitis of left lower limb; L50.0 Allergic urticaria; Z96.653 Presence of artificial knee joint, bilateral ==